=== PATIENT | male | born 1985 | race Caucasian/White ===

== ENCOUNTER 2025-03-30 12:34 | Emergency (ER) | payer BC ==
[2025-03-30] MEDS: Ketorolac 30 MG/ML SDV IM ONE (13:25)
== END 2025-03-30 14:04 | disposition home or self-care (01) ==
LOC: MW.ED 12:34
DX: S39.012A Strain of muscle, fascia and tendon of lower back, initial encounter (principal); Z79.899 Other long term (current) drug therapy; X58.XXXA Exposure to other specified factors, initial encounter
CPT/HCPCS: 96372; 99283; J1100; J1885